=== PATIENT | male | born 1960 | race Caucasian/White ===

== ENCOUNTER → 2017-05-09 | Outpatient (CLI) | payer OTHER ==
[~2017-05-09] MED LIST: EC-NAPROSYN500 MG PO; LISINOPRIL-HCTZ1 T20 PO; PERCOCET 5-3251 TAB PO; VOLTAREN75 MG PO; ZYLOPRIM PO; [UNRECOGNIZED DRUG - CODE] PO; [UNRECOGNIZED DRUG - REMARK]
--- NOTE | ~2017-05-09 | US85 ---
STS. [facility] A Service of [facility] & [facility] [place] RADIOLOGY TEXT RESULTS PATIENT: MARIFER WALKER LOCATION: SNIV : 60 UNIT #: [id number] AGE: [address]: EUGENE VALENZUELA MD SEX: M ORDER DR: [id number] [address] [id number] O MR#: [id number] Acc #: [id number] NAME: MARIFER WALKER. : 1960 SEX: M STUDY DATE/TIME: 05/09/2017 12:03 UNIT: SNIV ROOM: STUDY DESCRIPTION: LE [employer] Stdy Ordering Physician: Alberto Valenzuela M.D. Primary Care Physician: Beatriz Jules M.D. MEDICAL IMAGING REPORT This report is preliminary unless electronic signature is present. EXAM Left lower extremity venous ultrasound 05/09/2017 HISTORY Pain, swelling, redness for 4 days. No prior history DVT. TECHNIQUE Real-time ultrasonography of the right lower extremity venous structures performed. Gallegos-scale, color Doppler, Doppler pulse-wave interrogation utilized. COMPARISON STUDIES No prior studies for comparison. FINDINGS The right common femoral vein is patent with normal compressibility. The right femoral vein contains echogenic material with partial occlusion of the femoral vein in its proximal portion. In the mid- and distal right femoral vein, there is an internal echogenic material with non-compressibility and absence of flow. Appearance consistent with acute DVT. There is some residual lumen in the more proximal femoral vein. The popliteal vein contains echogenic material, is non-compressible and demonstrates absence of flow. The right posterior tibial, peroneal and anterior tibial veins remain patent with normal compressibility where anatomically possible and normal color Doppler interrogation. The right great saphenous vein is patent. IMPRESSION 1. Findings discussed with Dr. Valenzuela at time of this dictation. Dr. Valenzuela indicated he would contact patient directly for further consultation and instruction. Study is positive for acute DVT. There is non-occlusive DVT in the proximal left right femoral vein with occlusive STS. [facility] A Service of [facility] & [facility] [place] RADIOLOGY TEXT RESULTS PATIENT: MARIFER WALKER LOCATION: SNIV : 60 UNIT #: [id number] AGE: [address]: EUGENE VALENZUELA MD SEX: M ORDER DR: DVT seen in the mid- to distal right femoral vein and in the right popliteal vein. The right common femoral vein is patent without DVT and the right calf veins are patent without DVT. 2. The great saphenous vein is patent with no evidence of right lower extremity superficial venous thrombosis. Dictated by... King Drummond M.D. THIS IS AN ELECTRONICALLY VERIFIED REPORT King Drummond M.D. at 05/10/2017 10:45 PM SANDEEP/vivi TD: 05/09/2017 18:39 JOB #: [id number] MEDICAL IMAGING REPORT Page 1 of 1
== END | disposition home or self-care (01) ==
LOC: SNIV 11:57
DX: M79.604 Pain in right leg (principal)
CPT/HCPCS: 93971

== ENCOUNTER 2017-05-13 14:44 | Emergency (ER) | payer OTHER ==
[~2017-05-13] VITALS: Ht 172.7 cm; Wt 127.9 kg
[2017-05-13 18:18] LABS: BASOPHIL# 0.2 X10e3 (0-0.3); BASOPHIL% 1.4 % (0-2.5); EOSINOPHIL# 0.3 X10e3 (0-0.7); EOSINOPHIL% 2.7 % (0.0-7.0); HEMATOCRIT 40.9 % (38.0-50.0); LYMPHOCYTE# 2.4 X10e3 (1.0-3.5); LYMPHOCYTE% 19.4 % (17.0-45.0); MEAN CELL VOLUME 89.9 FL (83-96); MEAN CORPUSCULAR HEMOGLOBIN 30.8 PG (28-34); MEAN CORPUSCULAR HGB CONC 34.2 g/dL (30-36); MEAN PLATELET VOLUME 7.4 FL (6.5-11.5); MONOCYTE# 1.5 X10e3 (0-1.0); MONOCYTE% 12.1 % (3.0-12.0); NEUTROPHIL# 8.1 X10e3 (1.5-7.1); NEUTROPHIL% 64.4 % (40-75); PLATELET COUNT 297 X10e3 (140-420); RED BLOOD COUNT 4.55 X10e (3.90-5.60); RED CELL DISTRIBUTION WIDTH 13.2 % (11.0-15.5); WHITE BLOOD COUNT 12.6 X10e3 (4.0-10.5)
[2017-05-13 18:20] LABS: DIFF IND NO
[2017-05-13 18:45] LABS: ALBUMIN SERUM 3.8 g/dL (3.5-5.0); BILIRUBIN, DIRECT 0.1 mg/dL (0.0-0.2); BILIRUBIN,INDIRECT 0.9 mg/dL (0.0-0.9); BUN/CREATININE RATIO 16.66; CALCIUM SERUM 9.2 mg/dL (8.4-10.2); CREATININE SERUM 0.9 mg/dL (0.6-1.4); GLOM FILT RATE Estimated 94.5 mL/min (>60); POTASSIUM 4.3 mmol/L (3.5-5.1); PROTEIN TOTAL SERUM 8.4 g/dL (6.0-8.3)
== END 2017-05-13 19:35 | disposition home or self-care (01) ==
LOC: CED 14:44
PROVIDERS: Emergency Medicine
DX: I82.4Z1 Acute embolism and thrombosis of unspecified deep veins of right distal lower extremity (principal); M10.9 Gout, unspecified; I10 Essential (primary) hypertension
CPT/HCPCS: 80048; 80076; 85025; 96372; 99283; J1885